=== PATIENT | female | born 1960 | race Asian ===

== ENCOUNTER → 2016-12-04 | Outpatient (CLI) | payer OTHER | LOC: FIMAGING 09:05 | PROVIDERS: ATTEND Family Medicine | DX: Z12.31 Encounter for screening mammogram for malignant neoplasm of breast (principal) | CPT/HCPCS: G0202 ==

== ENCOUNTER 2018-10-09 17:41 | Emergency (ER) | payer OTHER | END 2018-10-09 19:05 | disposition home or self-care (01) ==

== ENCOUNTER 2018-10-22 18:52 | Inpatient (IN) | payer OTHER | END 2018-10-24 14:15 | disposition home or self-care (01) | LOC: F3N 23:40 ==